=== PATIENT | female | born 1950 | race Two or more races ===

== ENCOUNTER → 2019-12-02 | Outpatient (CLI) | payer MEDICARE, MEDICAID | END | disposition home or self-care (01) | LOC: MSC 10:20 | PROVIDERS: ATTEND Anesthesiology | DX: M51.26 Other intervertebral disc displacement, lumbar region (principal); M47.26 Other spondylosis with radiculopathy, lumbar region; M47.27 Other spondylosis with radiculopathy, lumbosacral region; M25.9 Joint disorder, unspecified; M70.61 Trochanteric bursitis, right hip; M70.62 Trochanteric bursitis, left hip; I10 Essential (primary) hypertension; E07.9 Disorder of thyroid, unspecified; Z79.1 Long term (current) use of non-steroidal anti-inflammatories (NSAID) ==

== ENCOUNTER → 2020-03-16 | Outpatient (CLI) | payer MEDICARE, MEDICAID | END | disposition home or self-care (01) | LOC: MSC 09:30 | PROVIDERS: ATTEND Anesthesiology | DX: M51.26 Other intervertebral disc displacement, lumbar region (principal); M47.26 Other spondylosis with radiculopathy, lumbar region; M47.27 Other spondylosis with radiculopathy, lumbosacral region; M70.61 Trochanteric bursitis, right hip; M70.62 Trochanteric bursitis, left hip; M25.9 Joint disorder, unspecified; I10 Essential (primary) hypertension; Z79.1 Long term (current) use of non-steroidal anti-inflammatories (NSAID) ==

== ENCOUNTER 2020-03-18 12:58 | Outpatient (CLI) | payer MEDICARE, MEDICAID ==
[2020-03-18] MEDS ORDERED: LIDOCAINE 2% 20 ML MDV IJ ONE (14:30)
[2020-03-18] MEDS ORDERED: TRIAMCINOLONE ACETONIDE SUSP 40 MG/ML VIAL IM ONE (14:30)
== END 2020-03-18 23:59 | disposition home or self-care (01) ==
LOC: WOU 12:58
PROVIDERS: ATTEND Surgery
DX: M65.4 Radial styloid tenosynovitis [de Quervain] (principal); M65.332 Trigger finger, left middle finger; G56.03 Carpal tunnel syndrome, bilateral upper limbs; M79.642 Pain in left hand; M79.641 Pain in right hand
CPT/HCPCS: 20550 ×2; J3301; J3490

== ENCOUNTER 2020-03-26 08:44 | Outpatient (CLI) | payer MEDICARE, MEDICAID | END 2020-03-26 23:59 | disposition home or self-care (01) | LOC: CARD 08:44 | PROVIDERS: ATTEND Surgery | DX: R60.0 Localized edema (principal) ==

== ENCOUNTER 2020-04-01 13:00 | Outpatient (CLI) | payer MEDICARE, OTHER | END 2020-04-01 23:59 | disposition home or self-care (01) | LOC: WOU 13:00 | PROVIDERS: ATTEND Surgery | DX: G56.03 Carpal tunnel syndrome, bilateral upper limbs (principal); M65.4 Radial styloid tenosynovitis [de Quervain]; M65.332 Trigger finger, left middle finger; R60.0 Localized edema; M79.642 Pain in left hand; M79.641 Pain in right hand | CPT/HCPCS: G0463 ==

== ENCOUNTER 2020-04-15 14:15 | Outpatient (CLI) | payer MEDICARE, OTHER ==
[2020-04-15] MEDS ORDERED: TRIAMCINOLONE ACETONIDE SUSP 40 MG/ML VIAL IM ONE (15:00)
[2020-04-15] MEDS ORDERED: LIDOCAINE 1%-EPI 1:100,000 20 ML VIAL IJ ONE (15:00)
== END 2020-04-15 23:59 | disposition home or self-care (01) ==
LOC: WOU 14:15
PROVIDERS: ATTEND Surgery
DX: G56.03 Carpal tunnel syndrome, bilateral upper limbs (principal); M65.4 Radial styloid tenosynovitis [de Quervain]; M65.332 Trigger finger, left middle finger; M79.642 Pain in left hand; M79.641 Pain in right hand; R60.0 Localized edema
CPT/HCPCS: 20526; J3301; J3490

== ENCOUNTER 2020-05-06 13:30 | Outpatient (CLI) | payer MEDICARE, OTHER | END 2020-05-06 23:59 | disposition home or self-care (01) | LOC: WOU 13:30 | PROVIDERS: ATTEND Surgery | DX: G56.03 Carpal tunnel syndrome, bilateral upper limbs (principal); M65.4 Radial styloid tenosynovitis [de Quervain]; R60.0 Localized edema; M79.642 Pain in left hand; M79.641 Pain in right hand | CPT/HCPCS: G0463 ==

== ENCOUNTER → 2020-05-18 | Outpatient (CLI) | payer MEDICARE, OTHER | END | disposition home or self-care (01) | LOC: MSC 08:50 | PROVIDERS: ATTEND Anesthesiology | DX: M51.26 Other intervertebral disc displacement, lumbar region (principal); M47.26 Other spondylosis with radiculopathy, lumbar region; M47.27 Other spondylosis with radiculopathy, lumbosacral region; M25.9 Joint disorder, unspecified; M70.61 Trochanteric bursitis, right hip; M70.62 Trochanteric bursitis, left hip; I10 Essential (primary) hypertension; E07.9 Disorder of thyroid, unspecified; Z95.820 Peripheral vascular angioplasty status with implants and grafts; R26.2 Difficulty in walking, not elsewhere classified; Z79.1 Long term (current) use of non-steroidal anti-inflammatories (NSAID) ==

== ENCOUNTER 2020-08-19 12:42 | Outpatient (CLI) | payer MEDICARE, OTHER ==
[2020-08-19 15:37] LABS: BASOPHILS % (AUTO) 0.5 % (0.0-2.0); EOSINOPHILS % (AUTO) 0.5 % (0.0-6.0); HEMATOCRIT 42 % (33-45); HEMOGLOBIN 13.9 g/dL (11.5-14.8); LYMPHOCYTES # (AUTO) 3.2 /CMM (0.8-4.8); LYMPHOCYTES % (AUTO) 40.9 % (20.0-44.0); MEAN CORPUSCULAR HGB CONC 33 g/dl (31.0-36.0); MEAN CORPUSCULAR VOLUME 92 fL (82-100); MONOCYTES # (AUTO) 0.5 /CMM (0.1-1.30); MONOCYTES % (AUTO) 6.3 % (2.0-12.0); NEUTROPHILS % (AUTO) 51.8 % (43.0-81.0); PLATELET COUNT (AUTO) 230 /CMM (150-450); WHITE BLOOD COUNT (AUTO) 7.8 K/uL (4.3-11.0)
[2020-08-19 15:44] LABS: CALCIUM, SERUM 9.6 mg/dL (8.5-10.1); CREATININE 0.7 mg/dL (0.6-1.3)
== END 2020-08-19 23:59 | disposition home or self-care (01) ==
LOC: WOU 12:42
PROVIDERS: ATTEND Surgery
DX: M65.4 Radial styloid tenosynovitis [de Quervain] (principal); G56.03 Carpal tunnel syndrome, bilateral upper limbs; M65.322 Trigger finger, left index finger; R60.0 Localized edema; R05 Cough
CPT/HCPCS: 36415; 71046; 80048; 85025; 85610; 85730; 93005; G0463

== ENCOUNTER 2020-08-26 10:29 | Outpatient (CLI) | payer MEDICARE, OTHER | END 2020-08-26 23:59 | disposition home or self-care (01) | LOC: LAB 10:29 | PROVIDERS: ATTEND Surgery | DX: Z01.812 Encounter for preprocedural laboratory examination (principal); Z20.822 Contact with and (suspected) exposure to COVID-19 | CPT/HCPCS: C9803; U0003 ==

== ENCOUNTER 2020-09-09 13:30 | Outpatient (CLI) | payer MEDICARE, OTHER | END 2020-09-09 23:59 | disposition home or self-care (01) | LOC: WOU 13:30 | PROVIDERS: ATTEND Surgery | DX: G56.03 Carpal tunnel syndrome, bilateral upper limbs (principal); R60.0 Localized edema; I10 Essential (primary) hypertension | CPT/HCPCS: G0463 ==

== ENCOUNTER 2020-09-23 15:00 | Outpatient (CLI) | payer MEDICARE, OTHER ==
[2020-09-23] MEDS ORDERED: BACI/NEOM/POLY B OINT PKT 1 UDPKT PACKET ONE (15:19)
== END 2020-09-23 23:59 | disposition home or self-care (01) ==
LOC: WOU 15:00
PROVIDERS: ATTEND Surgery
DX: G56.03 Carpal tunnel syndrome, bilateral upper limbs (principal); R60.0 Localized edema; I10 Essential (primary) hypertension; M65.332 Trigger finger, left middle finger
CPT/HCPCS: G0463

== ENCOUNTER 2020-10-14 14:45 | Outpatient (CLI) | payer MEDICARE, OTHER | END 2020-10-14 23:59 | disposition home or self-care (01) | LOC: WOU 14:45 | PROVIDERS: ATTEND Surgery | DX: G56.03 Carpal tunnel syndrome, bilateral upper limbs (principal); R60.0 Localized edema; M65.4 Radial styloid tenosynovitis [de Quervain]; I10 Essential (primary) hypertension | CPT/HCPCS: G0463 ==

== ENCOUNTER 2020-11-18 14:00 | Outpatient (CLI) | payer MEDICARE, OTHER | END 2020-11-18 23:59 | disposition home or self-care (01) | LOC: WOU 14:00 | PROVIDERS: ATTEND Surgery | DX: G56.03 Carpal tunnel syndrome, bilateral upper limbs (principal); R60.0 Localized edema; I10 Essential (primary) hypertension | CPT/HCPCS: G0463 ==

== ENCOUNTER 2020-12-16 14:00 | Outpatient (CLI) | payer MEDICARE, OTHER | END 2020-12-16 23:59 | disposition home or self-care (01) | LOC: WOU 14:00 | PROVIDERS: ATTEND Surgery | DX: G56.03 Carpal tunnel syndrome, bilateral upper limbs (principal); M65.332 Trigger finger, left middle finger; M65.4 Radial styloid tenosynovitis [de Quervain]; R60.0 Localized edema | CPT/HCPCS: G0463 ==

== ENCOUNTER 2021-02-17 12:50 | Outpatient (CLI) | payer MEDICARE, OTHER | END 2021-02-17 23:59 | disposition home or self-care (01) | LOC: WOU 12:50 | PROVIDERS: ATTEND Surgery | DX: G56.03 Carpal tunnel syndrome, bilateral upper limbs (principal); R60.0 Localized edema | CPT/HCPCS: G0463 ==

== ENCOUNTER 2021-04-21 13:00 | Outpatient (CLI) | payer MEDICARE, OTHER | END 2021-04-21 23:59 | disposition home health service (06) | LOC: WOU 13:00 | PROVIDERS: ATTEND Surgery | DX: G56.03 Carpal tunnel syndrome, bilateral upper limbs (principal); R60.0 Localized edema; R20.2 Paresthesia of skin | CPT/HCPCS: G0463 ==

== ENCOUNTER 2023-03-20 09:20 | Outpatient (CLI) | payer MEDICARE, OTHER | END 2023-03-20 23:59 | disposition home or self-care (01) | LOC: MSC 09:20 | PROVIDERS: ATTEND Anesthesiology | DX: M17.0 Bilateral primary osteoarthritis of knee (principal); M70.61 Trochanteric bursitis, right hip; M70.62 Trochanteric bursitis, left hip; M51.26 Other intervertebral disc displacement, lumbar region; M47.26 Other spondylosis with radiculopathy, lumbar region; M47.27 Other spondylosis with radiculopathy, lumbosacral region; M25.9 Joint disorder, unspecified | CPT/HCPCS: 20610; J1030; J3490 ==